=== PATIENT | male | born 1960 | race Caucasian/White ===

== ENCOUNTER 2021-05-03 10:14 | Emergency (ER) | payer OTHER ==
[2021-05-03 11:06] LABS: HEMOGLOBIN 15.1 gm/dl (14.0-17.5); RED BLOOD COUNT 4.59 M/UL (4.20-5.50); WHITE BLOOD COUNT 6.6 K/UL (4.5-11.0)
[2021-05-03 11:44] LABS: BUN/CREATININE RATIO 14 (0-10)
== END 2021-05-03 14:50 | disposition home or self-care (01) ==
LOC: ER1 10:14
PROVIDERS: Family Medicine
DX: R53.83 Other fatigue (principal); R07.9 Chest pain, unspecified; E11.9 Type 2 diabetes mellitus without complications; F10.10 Alcohol abuse, uncomplicated; I10 Essential (primary) hypertension
CPT/HCPCS: 71045; 80053; 82550; 82553; 83874; 84484; 85025; 93005; 99285